=== PATIENT | female | born 1945 | race Caucasian/White ===

== ENCOUNTER 2017-02-17 09:17 | Emergency (ER) | payer OTHER, MEDICAID ==
[~2017-02-17] VITALS: Ht 160 cm; Wt 60.0 kg
[~2017-02-17 09:17] MED LIST: ALBU18HF INH; ALPR0.257 PO; AMIT10TA PO; AMIT50TA PO; AMLO10TA2 PO; ASCO500C2 PO; ASPI325T4 PO; BACL-19 PO; BUDE10.2 INH; BUSP7.5T3 PO; CALC-141 PO; CALC3.7S5 NAS; CARV-39 PO; CARV12.52 PO; CETI10TA24 PO; CLON-364 PO; CLOP75TA PO; DOXY100C15 PO; EZET10TA3 PO; FLUT16SP NAS; FLUT9.9S INH; GABA300C10 PO; HYDR-3307 PO; HYDR-3343 PO; HYDR12.53 PO; HYDR12.58 PO; HYDR1TAB16 PO; HYDR25TA11 PO; IPRA3AMP INH; LEVO500T33 PO; LISI40TA PO; LOSA100T6 PO; LOSA25TA5 PO; METH4TAB2 PO; MULT-717 PO; NYST5000 PO; Nicotine TD; OXYC10TA32 PO; OXYM5TAB18 PO; Oxygen INH; PANT40TA3 PO; PARO40TA3 PO; POTA90TA2 PO; PRED10TA PO; PRED5TAB PO; PRIM50TA PO; Potassium Chloride PO; QUET100T4 PO; RISP1TAB45 PO; SERT25TA PO; SIMV40TA3 PO; TIOT18CA INH; TIZA4CAP2 PO; TRAM-28 PO; TRAZ100T15 PO; VITA50DR PO; ZOLP10TA5 PO
[2017-02-17] MEDS ORDERED: SODIUM CHLORIDE FLUSH 10ML SYR IVF ONE (10:00)
[2017-02-17] MEDS ORDERED: SODIUM CHLORIDE 0.9% 1,000ML IVBOLUS ONE (10:00)
[2017-02-17 10:15] LABS: HEMOGLOBIN 10.8 g/dL (11.7-16.4)
[2017-02-17 10:22] LABS: ASPARTATE AMINO TRANSFERASE 8 U/L (15-37); BLOOD UREA NITROGEN 31 mg/dL (7-18)
[2017-02-17 10:27] LABS: IS PT STATUS REG ER OR PRE ER? YES
[2017-02-17] MEDS ORDERED: CYCL-259 PO (10:51)
[2017-02-17] MEDS ORDERED: TRIA50CA PO (10:52)
[2017-02-17] MEDS ORDERED: FENO48TA5 PO (10:53)
[2017-02-17] MEDS ORDERED: OMEG1CAP12 PO (10:54)
[2017-02-17] MEDS ORDERED: HYDR25TA11 PO (10:55)
[2017-02-17] MEDS ORDERED: MECL25TA4 PO (10:57)
[2017-02-17] MEDS ORDERED: CLOP75TA22 PO (10:58)
[2017-02-17] MEDS ORDERED: SERT25TA3 PO (10:59)
[2017-02-17] MEDS ORDERED: TIZA4TAB PO (11:00)
[2017-02-17] MEDS ORDERED: TRAZ150T68 PO (11:01)
[2017-02-17] MEDS ORDERED: TRAM50TA2 PO (11:01)
[2017-02-17] MEDS ORDERED: TRIA1CAP3 PO (11:02)
[2017-02-17] MEDS ORDERED: EZET10TA3 PO (11:04)
[2017-02-17 11:52] VITALS: BP 139/45
== END 2017-02-17 12:44 | disposition home or self-care (01) ==
LOC: ED 09:55
DX: R42 Dizziness and giddiness (principal); I10 Essential (primary) hypertension; J45.909 Unspecified asthma, uncomplicated; F41.1 Generalized anxiety disorder; J44.9 Chronic obstructive pulmonary disease, unspecified; Z86.73 Personal history of transient ischemic attack (TIA), and cerebral infarction without residual deficits; Z87.891 Personal history of nicotine dependence
CPT/HCPCS: 36415; 80053; 81003; 84484; 85025; 93005; 96360; 96361; 99285; J7030

== ENCOUNTER 2017-04-05 18:21 | Emergency (ER) | payer OTHER, MEDICAID ==
[~2017-04-05] VITALS: Ht 157.5 cm; Wt 62.0 kg
[~2017-04-05 18:21] MED LIST changes: +CLOP75TA22 PO; +CYCL-259 PO; +FENO48TA5 PO; +ISOS30TA8 PO; +MECL25TA4 PO; +OMEG1CAP12 PO; +SERT25TA3 PO; +TIZA4TAB PO; +TRAM50TA2 PO; +TRAZ150T68 PO; +TRIA1CAP3 PO; +TRIA50CA PO
[2017-04-05] MEDS ORDERED: PLEASE ENTER HEIGHT AND WEIGHT MC SCH (18:30)
[2017-04-05] MEDS ORDERED: LORazepam 0.5MG TABLET PO ONE (18:30)
[2017-04-05] MEDS ORDERED: LORazepam 0.5MG TABLET ONE (18:46)
[2017-04-05] MEDS ORDERED: MELA1TAB8 PO (19:00)
[2017-04-05] MEDS ORDERED: CHOL200012 PO (19:01)
[2017-04-05] MEDS ORDERED: CA/D1TAB7 PO (19:03)
[2017-04-05 19:13] VITALS: BP 170/83
== END 2017-04-05 19:26 | disposition home or self-care (01) ==
LOC: ED 19:20
DX: R51 Headache (principal); I10 Essential (primary) hypertension; J44.9 Chronic obstructive pulmonary disease, unspecified; Z86.73 Personal history of transient ischemic attack (TIA), and cerebral infarction without residual deficits; Z87.891 Personal history of nicotine dependence
CPT/HCPCS: 70450; 99284

== ENCOUNTER 2017-05-17 08:37 | Inpatient (IN) | payer OTHER, MEDICAID ==
[~2017-05-17] VITALS: Ht 160 cm; Wt 66.7 kg
[~2017-05-17 08:37] MED LIST changes: +CA/D1TAB7 PO; +CARV3.1212 PO; +CHOL200012 PO; +MELA1TAB8 PO; +TRAZ50TA18 PO
[2017-05-17] MEDS ORDERED: NITROGLYCERIN SINGLE TAB 0.4 MG SL ONE (08:58)
[2017-05-17] MEDS ORDERED: NITROGLYCERIN OINT 2%, 1GM TP ONE ×2 (08:59→09:00)
[2017-05-17] MEDS ORDERED: SODIUM CHLORIDE FLUSH 10ML SYR IVF ONE (09:00)
[2017-05-17] MEDS ORDERED: NITROGLYCERIN SINGLE TAB 0.4 MG SL PRN (09:00)
[2017-05-17 09:32] LABS: BLOOD UREA NITROGEN 14 mg/dL (7-18)
[2017-05-17 09:38] LABS: IS PT STATUS REG ER OR PRE ER? YES
[2017-05-17] MEDS ORDERED: HYDR-3138 PO (09:38)
[2017-05-17] MEDS ORDERED: TRIA50CA PO (09:38)
[2017-05-17] MEDS ORDERED: ACETAMINOPHEN 500 MG TABLET ONE (09:49)
[2017-05-17] MEDS ORDERED: ACETAMINOPHEN 500 MG TABLET PO ONE (10:30)
[2017-05-17] MEDS ORDERED: LORazepam 1MG TABLET ONE (10:53)
[2017-05-17] MEDS ORDERED: LORazepam 1MG TABLET PO ONE (11:00)
[2017-05-17] MEDS ORDERED: POLYETHYLENE GLYCOL 17 GM PACKET PO PRN (11:30)
[2017-05-17] MEDS ORDERED: ENALAPRILAT 1.25 MG/ML, 2ML IVPush PRN (11:30)
[2017-05-17] MEDS ORDERED: LABETALOL 5MG/ML, 20ML IVPush PRN (11:30)
[2017-05-17] MEDS ORDERED: PROMETHAZINE 25 MG/ML, 1ML IM PRN (11:30)
[2017-05-17] MEDS ORDERED: ACETAMINOPHEN 325 MG TABLET PO PRN (11:30)
[2017-05-17] MEDS ORDERED: ONDANSETRON 2MG/ML, 2ML IVPush PRN (11:30)
[2017-05-17] MEDS ORDERED: BISACODYL 10 MG SUPP PR PRN (11:30)
[2017-05-17] MEDS ORDERED: DOCUSATE 100 MG CAPSULE PO PRN (11:30)
[2017-05-17 12:35] VITALS: BP 171/70
[2017-05-17] MEDS ORDERED: ASPI-650 PO (12:47)
[2017-05-17] MEDS: HYDROcodone/APAP 5/325 TABLET PO PRN ×2 (13:31→20:04)
[2017-05-17] MEDS: DOXYCYCLINE 100 MG in DEXTROSE 5% 250 ML IV SCH (13:31)
[2017-05-17] MEDS: ENOXAPARIN 40 MG/0.4 ML SQ SCH (13:31)
[2017-05-17] MEDS ORDERED: ALPR0.25 PO (13:35)
[2017-05-17] MEDS: methylPREDNISolone SOD SUCC 125 MG/2 ML IVPush SCH ×2 (14:07→21:19)
[2017-05-17] MEDS: ALBUTEROL/IPRATROPIUM 2.5MG/0.5MG, 3 ML NPPB SCH ×2 (14:34→19:46)
[2017-05-17 16:30] LABS: IS PT STATUS REG ER OR PRE ER? NO
[2017-05-17 16:39] VITALS: BP 160/78
[2017-05-17] MEDS: LACTOBACILLUS CHEW TABLET PO SCH ×2 (16:44→20:04)
[2017-05-17] MEDS: CARVEDILOL 3.125 MG TABLET PO SCH (16:45)
[2017-05-17 19:45] VITALS: BP 170/75
[2017-05-17] MEDS: TRAZODONE 50MG TABLET PO PRN (20:04)
[2017-05-17] MEDS: MELATONIN 5 MG TABLET PO SCH (20:08)
[2017-05-17 21:15] VITALS: BP 126/74
[2017-05-17 21:16] LABS: IS PT STATUS REG ER OR PRE ER? NO
[2017-05-18 01:31] VITALS: BP 160/75
[2017-05-18] MEDS: DOXYCYCLINE 100 MG in DEXTROSE 5% 250 ML IV SCH ×2 (01:34→13:41)
[2017-05-18 04:56] VITALS: BP 157/73
[2017-05-18] MEDS: methylPREDNISolone SOD SUCC 125 MG/2 ML IVPush SCH ×3 (04:57→21:45)
[2017-05-18] MEDS: CARVEDILOL 3.125 MG TABLET PO SCH ×2 (04:57→16:24)
[2017-05-18 05:49] LABS: ASPARTATE AMINO TRANSFERASE 12 U/L (15-37); BLOOD UREA NITROGEN 14 mg/dL (7-18)
[2017-05-18 06:37] VITALS: BP 170/72
[2017-05-18] MEDS: ALBUTEROL/IPRATROPIUM 2.5MG/0.5MG, 3 ML NPPB SCH ×4 (07:00→21:10)
[2017-05-18] MEDS: LACTOBACILLUS CHEW TABLET PO SCH ×3 (08:38→21:00)
[2017-05-18] MEDS: EZETIMIBE 10 MG TABLET PO SCH (08:38)
[2017-05-18] MEDS: HYDROcodone/APAP 5/325 TABLET PO PRN ×3 (08:38→23:40)
[2017-05-18] MEDS: OMEGA-3/FISH OIL CAPSULE PO SCH (08:38)
[2017-05-18] MEDS: CLOPIDOGREL 75 MG TABLET PO SCH (08:38)
[2017-05-18] MEDS: SERTRALINE 50MG TABLET PO SCH (08:38)
[2017-05-18] MEDS: TRIAMTERENE 50 MG CAPSULE PO SCH (08:38)
[2017-05-18] MEDS: ASPIRIN 325 MG TABLET PO SCH (08:39)
[2017-05-18] MEDS ORDERED: FLUTICASONE NASAL SPRAY 16GM NAS SCH (09:00)
[2017-05-18] MEDS ORDERED: LORazepam 2 MG/ML, 1ML ONE (11:03)
[2017-05-18] MEDS: ENOXAPARIN 40 MG/0.4 ML SQ SCH (11:12)
[2017-05-18] MEDS ORDERED: LORazepam 2 MG/ML, 1ML IVPush ONE (11:30)
[2017-05-18 14:55] VITALS: BP 147/72
[2017-05-18 21:41] VITALS: BP 158/79
[2017-05-18] MEDS: MELATONIN 5 MG TABLET PO SCH (21:45)
[2017-05-18] MEDS: TRAZODONE 50MG TABLET PO PRN (21:46)
[2017-05-19] MEDS: DOXYCYCLINE 100 MG in DEXTROSE 5% 250 ML IV SCH ×2 (02:07→12:50)
[2017-05-19 02:58] VITALS: BP 169/82
[2017-05-19] MEDS: CARVEDILOL 3.125 MG TABLET PO SCH ×2 (05:47→08:16)
[2017-05-19] MEDS: methylPREDNISolone SOD SUCC 125 MG/2 ML IVPush SCH ×2 (05:57→14:00)
[2017-05-19] MEDS: ALBUTEROL/IPRATROPIUM 2.5MG/0.5MG, 3 ML NPPB SCH ×2 (07:00→11:00)
[2017-05-19] MEDS: CLOPIDOGREL 75 MG TABLET PO SCH (08:16)
[2017-05-19] MEDS: SERTRALINE 50MG TABLET PO SCH (08:16)
[2017-05-19] MEDS: EZETIMIBE 10 MG TABLET PO SCH (08:16)
[2017-05-19] MEDS: LACTOBACILLUS CHEW TABLET PO SCH (08:16)
[2017-05-19] MEDS: OMEGA-3/FISH OIL CAPSULE PO SCH (08:16)
[2017-05-19] MEDS: ASPIRIN 325 MG TABLET PO SCH (08:17)
[2017-05-19] MEDS: TRIAMTERENE 50 MG CAPSULE PO SCH (08:17)
[2017-05-19 08:25] VITALS: BP 147/75
[2017-05-19] MEDS ORDERED: FLUTICASONE NASAL SPRAY 16GM NAS SCH (09:00)
[2017-05-19] MEDS: ENOXAPARIN 40 MG/0.4 ML SQ SCH (11:25)
[2017-05-19] MEDS: HYDROcodone/APAP 5/325 TABLET PO PRN (11:25)
[2017-05-19] MEDS ORDERED: DOXY100C2 PO (13:23)
[2017-05-19] MEDS ORDERED: ACID1TAB7 PO (13:23)
[2017-05-19] MEDS ORDERED: PRED10TA PO (13:23)
== END 2017-05-19 14:55 | disposition home or self-care (01) | DRG 292 ==
LOC: ED 10:53 → EDIP 10:54 → SUATTDRO 11:01 → ED 11:32 → 5SO 12:20 → DCLOUNGE 05-19 14:25
PROVIDERS: ADMIT Internal Medicine; ATTEND Internal Medicine
DX: I11.0 Hypertensive heart disease with heart failure (principal); J44.1 Chronic obstructive pulmonary disease with (acute) exacerbation; J96.10 Chronic respiratory failure, unspecified whether with hypoxia or hypercapnia; I50.32 Chronic diastolic (congestive) heart failure; I25.2 Old myocardial infarction; E78.5 Hyperlipidemia, unspecified; F41.1 Generalized anxiety disorder; F32.9 Major depressive disorder, single episode, unspecified; G47.00 Insomnia, unspecified; M54.9 Dorsalgia, unspecified; I08.1 Rheumatic disorders of both mitral and tricuspid valves; G89.29 Other chronic pain; I25.10 Atherosclerotic heart disease of native coronary artery without angina pectoris; K59.00 Constipation, unspecified; I27.2 Other secondary pulmonary hypertension; Z86.73 Personal history of transient ischemic attack (TIA), and cerebral infarction without residual deficits; Z87.891 Personal history of nicotine dependence; Z79.82 Long term (current) use of aspirin; Z79.02 Long term (current) use of antithrombotics/antiplatelets; Z79.899 Other long term (current) drug therapy; Z88.8 Allergy status to other drugs, medicaments and biological substances; Z99.81 Dependence on supplemental oxygen
CPT/HCPCS: 36415; 71010; 80048; 80053; 80061; 82040; 83735; 83880; 84100; 84443; 84484; 85025; 85379; 85610; 85730; 93005; 94640; 99285; J1650; J7060; J7620; J2060; J2930

== ENCOUNTER 2017-11-03 11:15 | Emergency (ER) | payer OTHER, MEDICAID ==
[~2017-11-03] VITALS: Ht 160 cm; Wt 59.0 kg
[~2017-11-03 11:15] MED LIST changes: +ACID1TAB7 PO; +ALPR0.25 PO; +ASPI-650 PO; +ASPI325T17 PO; -ASPI325T4 PO; -CHOL200012 PO; +CHOL200074 PO; -CLOP75TA22 PO; +CLOP75TA52 PO; +DOXY100C2 PO; +EZET10TA18 PO; -EZET10TA3 PO; +HYDR-3237 PO; -LEVO500T33 PO; +LEVO500T47 PO; -OMEG1CAP12 PO; +OMEG1CAP23 PO; -OXYC10TA32 PO; +OXYC10TA47 PO; -TRAM-28 PO; +TRAM-47 PO; +TRAZ150T62 PO; -TRAZ150T68 PO
[2017-11-03] MEDS ORDERED: SODIUM CHLORIDE 0.9% 1,000ML IVBOLUS ONE (12:00)
[2017-11-03] MEDS ORDERED: SODIUM CHLORIDE FLUSH 10ML SYR IVF ONE (12:00)
[2017-11-03 12:12] LABS: HEMATOCRIT 36.4 % (34.6-47.8); HEMOGLOBIN 12.4 g/dL (11.7-16.4); WHITE BLOOD COUNT 7.8 x10^3/uL (3.4-10)
[2017-11-03 12:23] LABS: BLOOD UREA NITROGEN 15 mg/dL (7-18)
[2017-11-03 12:36] VITALS: BP 186/68
[2017-11-03] MEDS ORDERED: MORPHINE SULFATE 4 MG/ML, 1ML IVPush PRN (13:30)
[2017-11-03] MEDS ORDERED: morphine SULFATE 10 MG/ML, 1ML ONE (13:37)
== END 2017-11-03 14:23 | disposition home or self-care (01) ==
LOC: ED 14:00
DX: K08.89 Other specified disorders of teeth and supporting structures (principal); J44.9 Chronic obstructive pulmonary disease, unspecified; M54.9 Dorsalgia, unspecified; G89.29 Other chronic pain; J45.909 Unspecified asthma, uncomplicated; I25.10 Atherosclerotic heart disease of native coronary artery without angina pectoris; I25.2 Old myocardial infarction; Z86.73 Personal history of transient ischemic attack (TIA), and cerebral infarction without residual deficits
CPT/HCPCS: 36415; 80048; 82040; 85025; 85610; 85730; 96361; 96374; 99284; J7030

== ENCOUNTER 2017-12-30 10:09 | Emergency (ER) | payer OTHER, MEDICAID ==
[~2017-12-30] VITALS: Ht 157.5 cm; Wt 61.9 kg
[2017-12-30] MEDS ORDERED: ALPRazolam 1MG TABLET PO ONE (11:30)
[2017-12-30 11:57] VITALS: BP 154/69
== END 2017-12-30 12:40 | disposition home or self-care (01) ==
LOC: ED 11:27
DX: I11.9 Hypertensive heart disease without heart failure (principal)
CPT/HCPCS: 36415; 80047; 93005; 99285

== ENCOUNTER 2018-09-09 11:14 | Emergency (ER) | payer OTHER, MEDICAID ==
[~2018-09-09] VITALS: Ht 160 cm; Wt 63.0 kg
[~2018-09-09 11:14] MED LIST changes: +ALPR0.254 PO; -AMLO10TA2 PO; +AMLO10TA6 PO; -CLON-364 PO; +CLON0.1T12 PO; +CLON0.5T11 PO; +DIVA125C2 PO; -IPRA3AMP INH; +IPRA3AMP30 INH; -LOSA100T6 PO; +LOSA100T7 PO; -LOSA25TA5 PO; +LOSA25TA6 PO; +LOSA50TA2 PO; +SERT50TA5 PO; +TRAZ-136 PO; +TRAZ-137 PO; -TRAZ100T15 PO; -TRAZ50TA18 PO
[2018-09-09 11:19] VITALS: BP 137/65
[2018-09-09] MEDS ORDERED: ALPR-475 PO (11:33)
== END 2018-09-09 11:45 | disposition home or self-care (01) ==
LOC: ED 11:39
DX: F41.1 Generalized anxiety disorder (principal); Z76.0 Encounter for issue of repeat prescription; I11.0 Hypertensive heart disease with heart failure; I25.2 Old myocardial infarction; I25.10 Atherosclerotic heart disease of native coronary artery without angina pectoris; J44.9 Chronic obstructive pulmonary disease, unspecified; M19.90 Unspecified osteoarthritis, unspecified site; G89.29 Other chronic pain; Z86.73 Personal history of transient ischemic attack (TIA), and cerebral infarction without residual deficits
CPT/HCPCS: 99283

== ENCOUNTER 2019-06-08 07:30 | Outpatient (CLI) | payer MEDICARE, MEDICAID | END 2019-06-08 23:59 | disposition home or self-care (01) | LOC: CFH 07:30 | PROVIDERS: ATTEND Registered Nurse | DX: Z12.2 Encounter for screening for malignant neoplasm of respiratory organs (principal); I08.3 Combined rheumatic disorders of mitral, aortic and tricuspid valves; I25.10 Atherosclerotic heart disease of native coronary artery without angina pectoris; M85.88 Other specified disorders of bone density and structure, other site; J43.9 Emphysema, unspecified; R91.8 Other nonspecific abnormal finding of lung field; M48.55XA Collapsed vertebra, not elsewhere classified, thoracolumbar region, initial encounter for fracture; M43.8X5 Other specified deforming dorsopathies, thoracolumbar region; Z87.891 Personal history of nicotine dependence | CPT/HCPCS: 93306; G0297 ==